=== PATIENT | female | born 1955 | race Two or more races ===

== ENCOUNTER 2017-05-24 05:03 | Emergency (ER) | payer SELFPAY ==
[~2017-05-24] VITALS: Ht 160 cm; Wt 66.2 kg
[2017-05-24 05:14] VITALS: BP 154/73
== END 2017-05-24 07:29 | disposition home or self-care (01) ==
LOC: ER 05:05
DX: M25.561 Pain in right knee (principal); E11.9 Type 2 diabetes mellitus without complications; E78.5 Hyperlipidemia, unspecified; I10 Essential (primary) hypertension
CPT/HCPCS: 73562; 82962